=== PATIENT | male | born 1980 | race African-American/Black ===

== ENCOUNTER 2023-01-12 23:00 | Emergency (ER) | payer MEDICAID ==
[~2023-01-12] VITALS: Ht 172.7 cm; Wt 61.0 kg
[2023-01-12 23:22] VITALS: BP 132/92; PULSE 67; RESP 18; TEMP 97.6; O2SAT 100
== END 2023-01-12 23:44 | disposition home or self-care (01) ==
LOC: ER 23:00
DX: F10.129 Alcohol abuse with intoxication, unspecified (principal); Z00.00 Encounter for general adult medical examination without abnormal findings; Y90.9 Presence of alcohol in blood, level not specified
CPT/HCPCS: 99283